=== PATIENT | male | born 1980 ===

== ENCOUNTER 2017-05-02 21:22 | Emergency (ER) | payer MEDICAID ==
[~2017-05-02] VITALS: Ht 165.1 cm; Wt 81.5 kg
[2017-05-02 21:25] VITALS: Ht 165.1 cm; Wt 81.5 kg
--- NOTE | 2017-05-02 22:31 | RADRPT ---
PROCEDURE: CT Brain without contrast. CLINICAL INDICATION: Headache. TECHNIQUE: A CT of the brain without contrast was performed utilizing axial sections from the skul l base through the vertex. The patient was scanned without intravenous contrast enhancement. Sagitta l and coronal reformatted images were obtained using the data from the axial images. Total exam DLP is 720.23 mGy-cm. CTDIvol is 44.11 mGy. One or more of the following dose reduction techniques we re used: Automated exposure control, adjustment of the mA and/or kV according to patient size, use o f iterative reconstruction technique. COMPARISON: None available FINDINGS: There is normal baldwin-white matter differentiation. The ventricles and cisterns are normal. There is no intracranial hemorrhage or space-occupying lesion. There is no skull fracture or lytic lesion. IMPRESSION: 1. Normal noncontrast CT scan of the brain. 2. No intracranial hemorrhage. RPTAT: QQ .Nato Lawson MD, MD Date Time Electronically viewed and signed by .Nato Lawson MD, on 05/02/2017 22:30 .R/
[2017-05-02] MEDS ORDERED: FLUT9.9S NASAL (23:09)
[2017-05-02] MEDS ORDERED: NAPR-260 PO (23:09)
[2017-05-02] MEDS ORDERED: PSEU120T51 PO (23:10)
--- NOTE | 2017-05-02 23:40 | ERD ---
ER Documentation Chief Complaint Date/Time DATE: 05/02/17 TIME: 23:37 Chief Complaint DE ANDA since , bilateral ear pain x4 days HPI This is a 36-year-old male presents to the ER with a frontal headache that is been intermittent since October. Patient states that 4 days ago he began to have another episode. Frontal headache is throbbing in quality. It is constant and severe. Patient has been treated for sinusitis by other doctors,' s however states antibiotics do not work for him. Patient is also complaining of bilateral ear pressure. He denies any hearing loss or tinnitus. Patient denies any cough or cold symptoms. He denies any nasal discharge. He denies any head trauma. He denies any vision changes or vision loss. He denies any fevers or chills ROS 12 point review of systems was done, all negative except per HPI. Medications Home Meds Active Scripts Pseudoephedrine Hcl (Sudafed 12 Hour) 120 Mg Tablet.sa, 120 MG PO BID for 5 Days Prov:CEASAR VAZQUEZ 05/02/17 Fluticasone Propionate (Flonase Allergy Relief) 9.9 Ml Middle [place].susp, 1 SPRAY NASAL BID, #1 BOTTLE TO EACH NOSTRIL Prov:CEASAR VAZQUEZ 05/02/17 Naproxen* (Naprosyn*) 500 Mg Tablet, 500 MG PO BID Y for PAIN AND/OR INFLAMMATION, #30 TAB Prov:CEASAR VAZQUEZ 05/02/17 Allergies Allergies: Coded Allergies: No Known Allergy (Unverified , 05/02/17) PMhx/Soc Medical and Surgical Hx: pt denies Medical Hx, pt denies Surgical Hx Hx Alcohol Use: No Hx Substance Use: No Hx Tobacco Use: No Smoking Status: Never smoker Physical Exam Vitals Vital Signs Date Time Temp Pulse Resp B/P Pulse Ox O2 Delivery O2 Flow Rate FiO2 05/02/17 21:25 98.5 72 18 139/74 99 Physical Exam GENERAL: The patient is well developed and appropriate for usual state of health , in no apparent distress. HEENT: Atraumatic. Conjunctivae are pink. Pupils equal, round, and reactive to light. Extraocular muscles are grossly intact. Bilateral tympanic membranes are clear with no evidence of erythema, bulging or perforation. No sinus tenderness. NECK: C-spine is soft and supple. There is no cervical lymphadenopathy. CHEST: Clear to auscultation bilaterally. There are no rales, wheezes or rhonchi. HEART: Regular rate and rhythm. No murmurs, clicks, rubs or gallops. EXTREMITIES: Equal pulses bilaterally. There is no peripheral clubbing, cyanosis or edema. No focal swelling or erythema. Full range of motion. Grossly neurovascularly intact. NEURO: Alert and oriented. Cranial nerves II through XII are intact. Motor strength in all 4 extremities with 5/5 strength. Sensation grossly intact. Normal speech and gait. Negative Rhomberg. +2 DTRs. SKIN: There is no apparent rash or petechia. The skin is warm and dry. Procedures/MDM Differential Diagnosis includes but is not limited to; tension headache, migraine headache, cluster headache, sinus headache, nonspecific febrile headache, trigeminal neurologia, subdural hematoma, subarachnoid bleeding, meningitis, encephalitis. Patient is neurologically intact with no focal neurological deficits. This is a 36-year-old male presents to the ER with a frontal headache and ear pain. Patient's physical examination was benign with no evidence of otitis media, otitis externa, mastoiditis. I do not believe that patient has an acute intracranial pathology as his exam is normal and CT imaging was normal. This appears to be an ongoing problem over the last 7 months. Patient will be sent home with naproxen, Flonase and Sudafed. She is afebrile and extremely well-appearing. Patient is to follow-up with his primary care doctor within 1-2 days or return to ER sooner if symptoms worsen. My medical decision making was shared with the patient he understands and agrees with plan. Departure Diagnosis: Primary Impression: Multiple complaints Condition: Stable Patient Instructions: Headache, Unspecified Ref[facility] Usted se de anda hecho un examen mdico de control que le indica que no est en reilly condicin que requiera tratamiento urgente en el Departamento de Emergencia. Un estudio ms profundo y el tratamiento de gibson condicin pueden esperar sin ningn riesgo hasta que usted sea atendida/o en el consultorio de gibson mdico o reilly cl sandro. Es responsabilidad suya arreglar reilly christi para el seguimiento del william. MANEJO DE CONDICIONES NO URGENTES EN EL FUTURO 1) Si usted tiene un mdico de atencin primaria: Usted debera llamar a gibson mdico de atencin primaria antes de venir al departamento de emergencia. Despus de las horas de consultorio, gibson doctor o gibson asociado/a est disponible por telfono. El mdico o enfermero de tori en el servicio telefnico puede asesorarle por kelly medio para atender el problema, o william contrario se puede programar reilly christi. 2) Si usted no tiene un mdico de atencin primaria: Llame al mdico o clnica de referencia que aparece abajo los las horas de consultorio para hacer reilly christi para que le vean. CLINICAS: [facility] [phone] [facility] [facility] [phone] [address] [facility] [facility] [phone] [address] [facility] [facility] [phone] [address] [facility] [place] [id number] [phone] [facility]. [phone] [address] Additional Instructions: Llame al doctor MAANA y dayana reilly CHRISTI PARA DENTRO DE 1-2 WINKLER.Dgale a la secretaria que nosotros le instruimos hacer esta christi.Avise o llame si gibson condicin se empeora antes de la christi. Regresa aqui si peor o no mejor. CEASAR VAZQUEZ May 02, 2017 23:40
[2017-05-03 00:05] VITALS: BP 137/80; PULSE 66; RESP 12; TEMP 97.9
== END 2017-05-03 00:07 | disposition home or self-care (01) ==
LOC: FTE 21:22
DX: R51 Headache (principal); H92.03 Otalgia, bilateral
CPT/HCPCS: 70450; Z7502